=== PATIENT | male | born 1990 | race Caucasian/White ===

== ENCOUNTER 2017-06-08 08:50 | Inpatient (IN) | payer OTHER ==
[2017-06-08] MEDS ORDERED: Sodium Chloride 0.9% 1,000 ML IV STA (09:37)
[2017-06-08 10:25] LABS: ALB/GLOB RATIO 1.5 (1.0-2.1); ALBUMIN 4.6 g/dL (3.5-5.0); ALT/SGPT 58 U/L (21-72); AST/SGOT 31 U/L (17-59); BLOOD UREA NITROGEN 16 mg/dl (9-20); CALCIUM 9.6 mg/dL (8.4-10.2); GFR AFRICAN-AMERICAN > 60; GFR NON-AFRICAN AMERICAN > 60; LIPASE 37 U/L (23-300)
[2017-06-08 10:26] LABS: BASO % 0.4 % (0.0-2.0); EOS # 0.6 K/uL (0.0-0.7); EOS % 5.4 % (0.0-4.0); HEMOGLOBIN 15.5 g/dL (12.0-18.0); LYMPH # 1.2 K/uL (1.0-4.3); MEAN CELL VOLUME 84.1 fl (80.0-94.0); MEAN CORPUSCULAR HEMOGLOBIN 29.6 pg (27.0-31.0); MEAN CORPUSCULAR HGB CONC 35.3 g/dL (33.0-37.0); MEAN PLATELET VOLUME 10.8 fl (7.2-11.7); MONO # 0.6 K/uL (0.0-0.8); MONO % 5.6 % (0.0-10.0); NEUT # 7.9 K/uL (1.8-7.0); NEUT % 76.6 % (50.0-75.0); NRBC % 0.1 % (0.0-0.0); RBC 5.25 Mil/uL (4.40-5.90); RED CELL DISTRIBUTION WIDTH 13.6 % (11.5-14.5); WHITE BLOOD COUNT 10.2 K/uL (4.8-10.8)
[2017-06-08] MEDS ORDERED: Sodium Chloride 0.9% 50 ML IV ONE (10:47)
[2017-06-08] MEDS ORDERED: Iohexol 300 100 ML IJ ONE (10:47)
[2017-06-08 11:35] LABS: URINE BILIRUBIN NEGATIVE (NEGATIVE); URINE BLOOD NEGATIVE (NEGATIVE); URINE CLARITY CLEAR (Clear); URINE COLOR STRAW (YELLOW); URINE GLUCOSE (UA) NEG (Normal); URINE LEUKOCYTE ESTERASE NEG Leu/uL (Negative); URINE NITRATE NEGATIVE (NEGATIVE); URINE PROTEIN NEGATIVE (NEGATIVE); URINE UROBILINOGEN 0.2-1.0 mg/dL (0.2-1.0)
--- NOTE | 2017-06-08 11:40 | CT ---
PROCEDURE: CT Abdomen and Pelvis with contrast HISTORY: Gen abd pain, nausea, vomiting COMPARISON: None. TECHNIQUE: Contrast dose: Radiation dose: Total exam DLP = mGy-cm. This CT exam was performed using one or more of the following dose reduction techniques: Automated exposure control, adjustment of the mA and/or kV according to patient size, and/or use of iterative reconstruction technique. FINDINGS: LOWER THORAX: Unremarkable. LIVER: Unremarkable. No gross lesion or ductal dilatation. GALLBLADDER AND BILE DUCTS: Unremarkable. PANCREAS: Unremarkable. No gross lesion or ductal dilatation. SPLEEN: Unremarkable. ADRENALS: Unremarkable. No mass. KIDNEYS AND URETERS: Unremarkable. No hydronephrosis. No solid mass. VASCULATURE: Unremarkable. No aortic aneurysm. BOWEL: Unremarkable. No obstruction. No gross mural thickening. APPENDIX: Significantly dilated with minimal wall thickening highly suspicious for appendicitis. PERITONEUM: Unremarkable. No free fluid. No free air. LYMPH NODES: Unremarkable. No enlarged lymph nodes. BLADDER: Unremarkable. REPRODUCTIVE: Unremarkable. BONES: No acute fracture. OTHER FINDINGS: None. IMPRESSION: Significantly dilated with minimal wall thickening highly suspicious for appendicitis.
--- NOTE | 2017-06-08 11:43 | ED PDOC ---
HPI: Abdomen Time Seen by Provider: 06/08/17 09:10 Chief Complaint (Nursing): Abdominal Pain Chief Complaint (Provider): Abdominal Pain History Per: Patient History/Exam Limitations: no limitations Onset/Duration Of Symptoms: Hrs (since midnight) Current Symptoms Are (Timing): Still Present Additional Complaint(s): Guanako is a 26 y/o male who presents to the ED complaining of constant abdominal pain associated with chills and vomiting, since midnight. Denies any associated fever, constipation, diarrhea, or symptoms. PMD: Unknown Past Medical History Reviewed: Historical Data, Nursing Documentation, Vital Signs Vital Signs: Last Vital Signs Temp 97.6 F 06/08/17 14:08 Pulse 78 06/08/17 14:08 Resp 19 06/08/17 14:08 BP 128/78 06/08/17 14:08 Pulse Ox 98 06/08/17 14:08 - Medical History PMH: Asthma, Bronchitis Denies: Chronic Kidney Disease - Surgical History Surgical History: No Surg Hx - Family History Family History: States: Unknown Family Hx - Social History Ex-Smoker (has not smoked in the last 12 months): Yes Alcohol: > 2 Drinks/Day Drugs: Cannabis - Home Medications Home Medications: Ambulatory Orders Medication Instructions Recorded predniSONE [predniSONE Tab] 20 mg PO DAILY #5 tab 09/20/14 - Allergies Allergies/Adverse Reactions: Allergies Allergy/AdvReac Type Severity Reaction Status Date / Time No Known Allergies Allergy Verified 09/18/14 11:18 Review of Systems ROS Statement: Except As Marked, All Systems Reviewed And Found Negative Constitutional: Positive for: Chills. Negative for: Fever Gastrointestinal: Positive for: Vomiting, Abdominal Pain. Negative for: Diarrhea, Constipation Genitourinary Male: Negative for: Dysuria, Frequency, Incontinence Physical Exam - Reviewed Nursing Documentation Reviewed: Yes Vital Signs Reviewed: Yes - Physical Exam Appears: Positive for: Non-toxic, In Acute Distress (moderate painful distress) Head Exam: Positive for: ATRAUMATIC, NORMAL INSPECTION, NORMOCEPHALIC Skin: Positive for: Normal Color, Warm, Dry Eye Exam: Positive for: EOMI, Normal appearance, PERRL Neck: Positive for: Normal, Painless ROM, Supple Cardiovascular/Chest: Positive for: Regular Rate, Rhythm. Negative for: Murmur Respiratory: Positive for: Normal Breath Sounds. Negative for: Accessory Muscle Use, Respiratory Distress Gastrointestinal/Abdominal: Positive for: Soft, Tenderness (generalized tenderness). Negative for: Guarding, Rebound Back: Positive for: Normal Inspection. Negative for: Vertebral Tenderness Extremity: Positive for: Normal ROM, Capillary Refill (< 2 sec). Negative for: Pedal Edema, Deformity Neurologic/Psych: Positive for: Alert, Oriented - Laboratory Results Result Diagrams: 06/08/17 10:00 06/08/17 10:00 - ECG O2 Sat by Pulse Oximetry: 98 (RA) Pulse Ox Interpretation: Normal - Physician Consult Information Physician Contacted: Wilfrid Jensen Outcome Of Conversation: Admit to Hospitalist, contact pharmacy resident, Abx, OR today. Medical Decision Making Medical Decision Making: Time: 9:37 Initial Impression: Abdominal Pain Initial Plan: --CMP --CBC --Lipase --ED Urine dipstick --Urinalysis --NS IV 1000 ml at 1000 mls/hr --Morphine 2 mg IV --Zofran 4 mg IV --Pending CT Abdomen and Pelvis w/ IV contrast Time: 10:45 --Morphine 2 mg IV Time: 11:38 CT Abdomen/Pelvis: FINDINGS: LOWER THORAX: Unremarkable. LIVER: Unremarkable. No gross lesion or ductal dilatation. GALLBLADDER AND BILE DUCTS: Unremarkable. PANCREAS: Unremarkable. No gross lesion or ductal dilatation. SPLEEN: Unremarkable. ADRENALS: Unremarkable. No mass. KIDNEYS AND URETERS: Unremarkable. No hydronephrosis. No solid mass. VASCULATURE: Unremarkable. No aortic aneurysm. BOWEL: Unremarkable. No obstruction. No gross mural thickening. APPENDIX: Significantly dilated with minimal wall thickening highly suspicious for appendicitis. PERITONEUM: Unremarkable. No free fluid. No free air. LYMPH NODES: Unremarkable. No enlarged lymph nodes. BLADDER: Unremarkable. REPRODUCTIVE: Unremarkable. BONES: No acute fracture. OTHER FINDINGS: None. IMPRESSION: Significantly dilated with minimal wall thickening highly suspicious for appendicitis. Time: 12:37 --Paged Dr. Jensen, General Surgery, for consult --Pt last ate @ 00:00 and last drank water @ 7 AM. Time: 12:39 --Zosyn given IV --Morphine 2 mg IV Time: 12:54 --Patient is to be admitted inpatient for acute appendicitis --Ordered CXR and EKG stat Scribe Attestation: Documented by Tarah Valdez, acting as a scribe for Shavon Vigil MD Provider Scribe Attestation: All medical record entries made by the Scribe were at my direction and personally dictated by me. I have reviewed the chart and agree that the record accurately reflects my personal performance of the history, physical exam, medical decision making, and the department course for this patient. I have also personally directed, reviewed, and agree with the discharge instructions and disposition. Disposition - Clinical Impression Clinical Impression: Acute appendicitis - Patient ED Disposition Is Patient to be Admitted: Yes - Disposition Disposition Time: 12:56 Condition: STABLE - Pt Status Changed To: Hospital Disposition Of: Inpatient - Admit Certification Admit to Inpatient:: After my assessment, the patient will require hospitalization for at least two midnights. This is because of the severity of symptoms shown, intensity of services needed, and/or the medical risk in this patient being treated as an outpatient. - POA Present On Arrival: None
[2017-06-08] MEDS ORDERED: Piperacillin/Tazobact 3.375 GM in Sodium Chloride 0.9% 100 ML IVPB STA (12:39)
[2017-06-08] MEDS ORDERED: Piperacillin/Tazobact 3.375 gm Inj IVPB ONE (13:12)
--- NOTE | 2017-06-08 13:34 | CP.PCM.HP ---
History of Present Illness - History of Present Illness History of Present Illness: 26 yo male with no siginificant PMH came in complaining generalized abdominal pain since 4am accompanied with nausea and 2 bouts of vomiting. Denied having fever but admitted having chills. Pain was described as sharp and constant and non-radiating. Present on Admission - Present on Admission Any Indicators Present on Admission: No History of DVT/PE: No History of Uncontrolled Diabetes: No Urinary Catheter: No Decubitus Ulcer Present: No Review of Systems - Review of Systems All systems: reviewed and no additional remarkable complaints except (aside from those mentioned above, 12 point system review were negative by me) Past Patient History - Infectious Disease Hx of Infectious Diseases: None - Past Medical History & Family History Past Medical History?: No Past Family History: Reviewed and not pertinent - Past Social History Smoking Status: Current Some Days Smoker Alcohol: < 2 Drinks/Day Drugs: Cannabis - CARDIAC Hx Cardiac Disorders: No - PULMONARY Hx Asthma: Yes Hx Bronchitis: Yes - NEUROLOGICAL Hx Neurological Disorder: No - HEENT Hx HEENT Problems: No - RENAL Hx Chronic Kidney Disease: No - ENDOCRINE/METABOLIC Hx Endocrine Disorders: No - HEMATOLOGICAL/ONCOLOGICAL Hx Blood Disorders: No - INTEGUMENTARY Hx Dermatological Problems: No - MUSCULOSKELETAL/RHEUMATOLOGICAL Hx Musculoskeletal Disorders: No Hx Falls: No - GASTROINTESTINAL Hx Gastrointestinal Disorders: No - GENITOURINARY/GYNECOLOGICAL Hx Genitourinary Disorders: No - PSYCHIATRIC Hx Psychophysiologic Disorder: No Hx Substance Use: Yes (smokes pot) - SURGICAL HISTORY Hx Surgeries: No - ANESTHESIA Hx Anesthesia: No Hx Anesthesia Reactions: No Hx Malignant Hyperthermia: No Meds Allergies/Adverse Reactions: Allergies Allergy/AdvReac Type Severity Reaction Status Date / Time No Known Allergies Allergy Verified 09/18/14 11:18 Physical Exam - Constitutional Appears: No Acute Distress - Head Exam Head Exam: ATRAUMATIC - Eye Exam Eye Exam: absent: Scleral icterus - ENT Exam ENT Exam: Mucous Membranes Moist - Neck Exam Neck exam: Negative for: Meningismus - Respiratory Exam Respiratory Exam: absent: Rhonchi, Wheezes, Respiratory Distress - Cardiovascular Exam Cardiovascular Exam: REGULAR RHYTHM, +S1, +S2 - GI/Abdominal Exam GI & Abdominal Exam: Soft, Tenderness (tenderness over epigastric and RLQ on palpation). absent: Guarding, Rebound - Rectal Exam Rectal Exam: Deferred - Extremities Exam Extremities exam: Negative for: pedal edema - Back Exam Back exam: absent: tenderness - Neurological Exam Neurological exam: Alert, Oriented x3 - Psychiatric Exam Psychiatric exam: Normal Affect - Skin Skin Exam: Dry, Intact Results - Vital Signs Recent Vital Signs: Last Vital Signs Temp 98 F 06/08/17 09:05 Pulse 62 06/08/17 09:05 Resp 18 06/08/17 09:05 BP 133/88 06/08/17 09:05 Pulse Ox 98 06/08/17 12:56 - Labs Result Diagrams: 06/08/17 10:00 06/08/17 10:00 Assessment & Plan (1) Acute appendicitis Status: Acute Comment: place on observation in med/surg. blood culture x 2. surgical consult with Dr Jensen (called by ER). keep NPO. Unasyn 3gm IV q 6hrs. Morphine 2mg IV q 4hrs prn for pain. Zofran 4mg IV q 4hrs prn nausea/vomiting
[2017-06-08] MEDS ORDERED: Bupivacaine 0.5% Inj(30mL) ONE (13:53)
[2017-06-08 13:58] LABS: INR 1.1 (0.9-1.2); PARTIAL THROMBOPLASTIN TIME 33.7 Seconds (25.6-37.1); PROTHROMBIN TIME 11.8 Seconds (9.8-13.1)
[2017-06-08] MEDS ORDERED: Propofol 10 mg/ml Inj (20 ML) ONE (14:21)
[2017-06-08] MEDS ORDERED: Midazolam 2 MG/2 ML VIAL ONE (14:22)
[2017-06-08] MEDS ORDERED: Neostigmine Methylsulfate 3mg/3ml Syringe IV ONE (14:22)
[2017-06-08] MEDS ORDERED: Succinylcholine 200 mg/10 ml Inj IV ONE (14:22)
[2017-06-08] MEDS ORDERED: Rocuronium 10 mg/ml (5 ml) ONE (14:22)
[2017-06-08] MEDS ORDERED: Lidocaine 4% (Laryng-O-Jet) Kit MM ONE (14:22)
[2017-06-08] MEDS ORDERED: Lactated Ringer's 1,000 ML IV ONE ×2 (14:30→15:20)
[2017-06-08] MEDS ORDERED: Bupivacaine 0.5% 50 ML IJ ONE (15:40)
[2017-06-08] MEDS: Ampicillin/Sulbactam 3 GM in Sodium Chloride 0.9% 100 ML IVPB SCH ×2 (16:00→22:05)
[2017-06-08] MEDS ORDERED: HYDROmorphone 0.5 mg/0.5 ml ISec IVP PRN (16:05)
[2017-06-08] MEDS ORDERED: DiphenhydrAMINE 50 mg/ml Inj IVP PRN (16:05)
[2017-06-08] MEDS ORDERED: Oxycodone/Acetaminophen 5/325 mg Tab PO PRN (16:13)
--- NOTE | 2017-06-08 16:17 | PCM.SURG1 ---
Surgeon's Initial Post Op Note - Surgeon's Notes Surgeon: Dr. Jensen Cutting Machine Fixer: Dr. Barbour PGY-2 Type of Anesthesia: General Endo Pre-Operative Diagnosis: acute appendicitis Operative Findings: appendicitis Post-Operative Diagnosis: same Operation Performed: laparoscopic appendectomy Specimen/Specimens Removed: appendix Estimated Blood Loss: EBL {In ML}: 10 Blood Products Given: N/A Drains Used: No Drains Post-Op Condition: Good Date of Surgery/Procedure: 06/08/17 Time of Surgery/Procedure: 16:17
--- NOTE | 2017-06-08 16:21 | CP.PCM.CON ---
<Artem Barbour - Last Filed: 06/08/17 16:19> History of Present Illness - History of Present Illness History of Present Illness: 26M w/ no PMHx reports to the ED w/ complaints of abdominal pain. Patient reports he ate a large meal of fried chicken and camb[place]ian fries before going to sleep. At 4AM patient states he woke up with generalized abdominal pain which increased in severity with time. Patient reports having multiples bouts of emesis, non-bloody. Denies taking any medication to alleviate pain. Since pain did not improve patient decided to come to hospital. Patient denies radiation of abdominal pain. PMHx: as stated above Allergies: NKDA PSurgHx: none Review of Systems - Review of Systems Review of Systems: 12 pt ROS unremarkable, except as stated in HPI Past Patient History - Infectious Disease Hx of Infectious Diseases: None - Past Medical History & Family History Past Medical History?: No Past Family History: Reviewed and not pertinent - Past Social History Alcohol: > 2 Drinks/Day Drugs: Cannabis - CARDIAC Hx Cardiac Disorders: No - PULMONARY Hx Asthma: Yes Hx Bronchitis: Yes - NEUROLOGICAL Hx Neurological Disorder: No - HEENT Hx HEENT Problems: No - RENAL Hx Chronic Kidney Disease: No - ENDOCRINE/METABOLIC Hx Endocrine Disorders: No - HEMATOLOGICAL/ONCOLOGICAL Hx Blood Disorders: No - INTEGUMENTARY Hx Dermatological Problems: No - MUSCULOSKELETAL/RHEUMATOLOGICAL Hx Musculoskeletal Disorders: No - GASTROINTESTINAL Hx Gastrointestinal Disorders: No - GENITOURINARY/GYNECOLOGICAL Hx Genitourinary Disorders: No - PSYCHIATRIC Hx Psychophysiologic Disorder: No - SURGICAL HISTORY Hx Surgeries: No - ANESTHESIA Hx Anesthesia: No Hx Anesthesia Reactions: No Hx Malignant Hyperthermia: No Meds Allergies/Adverse Reactions: Allergies Allergy/AdvReac Type Severity Reaction Status Date / Time No Known Allergies Allergy Verified 09/18/14 11:18 - Medications Medications: Current Medications Diphenhydramine HCl (Benadryl) 25 mg IVP Q6 PRN PRN Reason: Itching / Pruritus Stop: 06/08/17 18:09 Famotidine (Pepcid) 20 mg PO DAILY CE Hydromorphone HCl (Dilaudid) 0.5 mg IVP Q5M PRN PRN Reason: Pain, moderate (4-7) Stop: 06/08/17 18:07 Sodium Chloride (Sodium Chloride 0.9%) 1,000 mls @ 100 mls/hr IV .Q10H CE Ampicillin Sodium/Sulbactam (Sodium 3 gm/ Sodium Chloride) 100 mls @ 100 mls/ hr IVPB Q6 CE Lactated Ringer's (Lactated Ringer's) 1,000 mls @ 100 mls/hr IV .Q10H CE Morphine Sulfate (Morphine) 2 mg IVP Q4 PRN PRN Reason: abdominal pain Morphine Sulfate (Morphine) 4 mg IVP Q4 PRN PRN Reason: Pain, severe (8-10) Ondansetron HCl (Zofran Inj) 4 mg IVP Q6 PRN PRN Reason: Nausea/Vomiting Oxycodone/Acetaminophen (Percocet 5/325 Mg Tab) 1 tab PO Q4 PRN PRN Reason: Pain, moderate (4-7) Stop: 06/11/17 16:14 Physical Exam - Constitutional Appears: No Acute Distress - Head Exam Head Exam: NORMOCEPHALIC - Eye Exam Eye Exam: Normal appearance - ENT Exam ENT Exam: Normal Exam - Respiratory Exam Respiratory Exam: NORMAL BREATHING PATTERN - Cardiovascular Exam Cardiovascular Exam: +S1, +S2 - GI/Abdominal Exam GI & Abdominal Exam: Guarding, Rebound, Tenderness. absent: Firm, Rigid Additional comments: +McBurney's +Rovsings -Psoas +rebound tenderness - Neurological Exam Neurological exam: Alert, Oriented x3 - Psychiatric Exam Psychiatric exam: Normal Mood - Skin Skin Exam: Dry, Intact, Warm Results - Vital Signs Recent Vital Signs: Last Vital Signs Temp 98.3 F 06/08/17 16:05 Pulse 74 06/08/17 16:05 Resp 18 06/08/17 16:05 BP 114/69 06/08/17 16:05 Pulse Ox 96 06/08/17 16:05 - Labs Result Diagrams: 06/08/17 10:00 06/08/17 10:00 Labs: Laboratory Results - last 24 hr 06/08/17 13:05 PT 11.8 INR 1.1 APTT 33.7 - Imaging and Cardiology CT scan - abdomen Status: Image reviewed by me, Report reviewed by me Assessment & Plan - Assessment and Plan (Free Text) Assessment: 26M w/ acute appendicitis -NPO -IVF -Abx -Anti-emetics/Analgesics -Patient scheduled for OR for laparoscopic appendectomy, possible open -DVT/GI ppx -D/w Dr. Camila Barbour PGY-2 <Wilfrid Jensen - Last Filed: 06/08/17 16:41> History of Present Illness - History of Present Illness History of Present Illness: Patient was seen and examined at the bedside. Agree with resident's note above. Meds - Medications Medications: Current Medications Diphenhydramine HCl (Benadryl) 25 mg IVP Q6 PRN PRN Reason: Itching / Pruritus Stop: 06/08/17 18:09 Famotidine (Pepcid) 20 mg PO DAILY CE Hydromorphone HCl (Dilaudid) 0.5 mg IVP Q5M PRN PRN Reason: Pain, moderate (4-7) Stop: 06/08/17 18:07 Sodium Chloride (Sodium Chloride 0.9%) 1,000 mls @ 100 mls/hr IV .Q10H CE Ampicillin Sodium/Sulbactam (Sodium 3 gm/ Sodium Chloride) 100 mls @ 100 mls/ hr IVPB Q6 CE Last Admin: 06/08/17 16:00 Dose: 100 mls/hr Lactated Ringer's (Lactated Ringer's) 1,000 mls @ 100 mls/hr IV .Q10H CE Morphine Sulfate (Morphine) 2 mg IVP Q4 PRN PRN Reason: abdominal pain Morphine Sulfate (Morphine) 4 mg IVP Q4 PRN PRN Reason: Pain, severe (8-10) Ondansetron HCl (Zofran Inj) 4 mg IVP Q6 PRN PRN Reason: Nausea/Vomiting Oxycodone/Acetaminophen (Percocet 5/325 Mg Tab) 1 tab PO Q4 PRN PRN Reason: Pain, moderate (4-7) Stop: 06/11/17 16:14 Results - Vital Signs Recent Vital Signs: Last Vital Signs Temp 98.3 F 06/08/17 16:35 Pulse 68 06/08/17 16:35 Resp 16 06/08/17 16:35 BP 113/61 06/08/17 16:35 Pulse Ox 100 06/08/17 16:35 - Labs Result Diagrams: 06/08/17 10:00 06/08/17 10:00 Labs: Laboratory Results - last 24 hr 06/08/17 13:05 PT 11.8 INR 1.1 APTT 33.7
[2017-06-08] MEDS: Sodium Chloride 0.9% 1,000 ML IV SCH (17:26)
[2017-06-08] MEDS: Lactated Ringer's 1,000 ML IV SCH (17:50)
[2017-06-08] MEDS ORDERED: Morphine 4 MG/ML VIAL IVP PRN (21:30)
[2017-06-09 01:09] VITALS: RESP 20
[2017-06-09] MEDS: Sodium Chloride 0.9% 1,000 ML IV SCH (01:43)
--- NOTE | 2017-06-09 03:45 | OP ---
PREOPERATIVE DIAGNOSIS: Acute appendicitis. POSTOPERATIVE DIAGNOSIS: Acute appendicitis. PROCEDURE: Laparoscopic appendectomy. SURGEON: Wilfrid Jensen MD AUDIO NARRATOR: Km. TYPE OF ANESTHESIA: General endotracheal intubation. ANESTHESIA ADMINISTERED BY: Ignacio Law MD IV FLUIDS: Crystalloids. ESTIMATED BLOOD LOSS: 5 mL INTRAOPERATIVE FINDINGS: Acute appendicitis. SPECIMEN: Appendix. BRIEF HISTORY: Mr. Javier is a very pleasant 26-year-old gentleman who presented to the hospital complaining of abdominal pain for the duration of 1 day and upon further investigation, the patient was found to have acute appendicitis on the CAT scan. All the risks and benefits of the procedure were explained to the patient and with the patient having a full understanding of all the risks and benefits involved, informed consent was obtained, and the patient was taken to the operating room for above stated procedure. DESCRIPTION OF PROCEDURE: The patient was brought in to the operating room and placed supine in operating room table. Bilateral Flowtron boots were applied to the patient's lower extremities. After successful induction of anesthesia and successful endotracheal intubation by the anesthesia team, Mcgovern catheter was inserted into the patient's urinary bladder, and subsequent to that, the patient's abdomen was prepped with ChloraPrep stick and draped in a standard surgical fashion. Prior to the beginning of the procedure, time-out was called in the room and everyone in the room were in agreement. Using Veress needle, the patient's abdomen was entered at the umbilicus, and pneumoperitoneum was achieved with good opening pressures. Once this was accomplished, using 11 blade scalpel knife, approximately 5-mm incision was made in longitudinal fashion in umbilicus and subsequent to that, 5 mm trocar was introduced into the patient's abdomen. At that point in time, 5 mm 0-degree scope was introduced into the patient's abdomen, and abdomen was inspected. Attention was turned to the lower mid abdomen using 11 blade scalpel knife, 5 mm incision was made in the transverse fashion and subsequent to that, another 5 mm trocar was introduced into the patient's abdomen. Now, attention was turned to the left lower quadrant of the patient's abdomen. Using 11 blade scalpel knife, approximately 1-cm incision was made in transverse fashion, and subsequent to that, a 12-mm trocar was introduced into the patient's abdomen. At that point in time, appendix was mobilized using 2 graspers and subsequent to that, there appeared to be some peritoneal adhesions to the appendix. So, in order to mobilize them, I had to use Harmonic scalpel in order to dissect the appendix out all the way to the base, right next to the cecum. Mesoappendix was taken with Harmonic scalpel. At that point in time, using 45 mm blue-load Endo MARTÍNEZ stapler, appendix was taken right at the base and subsequent to that once the appendix was completely freed up, Endocatch bag was introduced into the patient's abdomen. Appendix was placed inside of the bag, and the bag was closed. At that point in time, staple line was inspected and appeared to be satisfactory. Right lower quadrant was mildly irrigated, and fluid was suctioned out, and at that point in time, 12 mm trocar together with Endocatch bag and appendix were removed from the patient's abdomen and passed off to the [facility] as a specimen. Fascial layer at the 12 mm trocar site and left lower quadrant was closed with 2 interrupted 0 Vicryl sutures and UR-5 needle and subsequent to that, the patient's abdomen was fully desufflated, and the rest of the trocars were removed from the patient's abdomen. The skin was closed with 4-0 Monocryl suture in a running subcuticular fashion. At the end of the procedure, incision sites were infiltrated with Marcaine anesthetic. The patient's abdomen was washed and dried, and Dermabond was applied to the incision sites. Mcgovern catheter was removed from the patient's urinary bladder. The patient was successfully extubated by the anesthesia team, transferred to the stretcher, and taken to the recovery room in stable condition. At the end of the procedure, all instrument counts, needles, and sponges were correct. Wilfrid Jensen MD
[2017-06-09] MEDS: Ampicillin/Sulbactam 3 GM in Sodium Chloride 0.9% 100 ML IVPB SCH ×2 (04:16→12:45)
[2017-06-09] MEDS: Lactated Ringer's 1,000 ML IV SCH (04:17)
--- NOTE | 2017-06-09 07:51 | CP.PCM.DIS ---
Provider - Provider Date of Admission: 06/08/17 12:54 Attending physician: Hugo Rosado MD Primary care physician: None Consults: surgeryconsult Time Spent in preparation of Discharge (in minutes): 20 Hospital Course - Lab Results Lab Results: Most Recent Lab Values WBC 10.2 K/uL (4.8-10.8) 06/08/17 10:00 RBC 5.25 Mil/uL (4.40-5.90) 06/08/17 10:00 Hgb 15.5 g/dL (12.0-18.0) 06/08/17 10:00 Hct 44.1 % (35.0-51.0) 06/08/17 10:00 MCV 84.1 fl (80.0-94.0) 06/08/17 10:00 MCH 29.6 pg (27.0-31.0) 06/08/17 10:00 MCHC 35.3 g/dL (33.0-37.0) 06/08/17 10:00 RDW 13.6 % (11.5-14.5) 06/08/17 10:00 Plt Count 158 K/uL (130-400) 06/08/17 10:00 MPV 10.8 fl (7.2-11.7) 06/08/17 10:00 Neut % (Auto) 76.6 % (50.0-75.0) H 06/08/17 10:00 Lymph % (Auto) 12.0 % (20.0-40.0) L 06/08/17 10:00 [place] % (Auto) 5.6 % (0.0-10.0) 06/08/17 10:00 Eos % (Auto) 5.4 % (0.0-4.0) H 06/08/17 10:00 Baso % (Auto) 0.4 % (0.0-2.0) 06/08/17 10:00 Neut # 7.9 K/uL (1.8-7.0) H 06/08/17 10:00 Lymph # 1.2 K/uL (1.0-4.3) 06/08/17 10:00 [place] # 0.6 K/uL (0.0-0.8) 06/08/17 10:00 Eos # 0.6 K/uL (0.0-0.7) 06/08/17 10:00 Baso # 0.0 K/uL (0.0-0.2) 06/08/17 10:00 PT 11.8 Seconds (9.8-13.1) 06/08/17 13:05 INR 1.1 (0.9-1.2) 06/08/17 13:05 APTT 33.7 Seconds (25.6-37.1) 06/08/17 13:05 Sodium 139 mmol/l (132-148) 06/08/17 10:00 Potassium 4.0 MMOL/L (3.6-5.0) 06/08/17 10:00 Chloride 102 mmol/L (98-107) 06/08/17 10:00 Carbon Dioxide 24 mmol/L (22-30) 06/08/17 10:00 Anion Gap 17 (10-20) 06/08/17 10:00 BUN 16 mg/dl (9-20) 06/08/17 10:00 Creatinine 0.8 mg/dL (0.8-1.5) 06/08/17 10:00 Est GFR ( Amer) > 60 06/08/17 10:00 Est GFR (Non-Af Amer) > 60 06/08/17 10:00 Random Glucose 108 mg/dL (75-110) 06/08/17 10:00 Calcium 9.6 mg/dL (8.4-10.2) 06/08/17 10:00 Total Bilirubin 0.6 mg/dl (0.2-1.3) 06/08/17 10:00 AST 31 U/L (17-59) 06/08/17 10:00 ALT 58 U/L (21-72) 06/08/17 10:00 Alkaline Phosphatase 94 U/L (38-126) 06/08/17 10:00 Total Protein 7.6 G/DL (6.3-8.2) 06/08/17 10:00 Albumin 4.6 g/dL (3.5-5.0) 06/08/17 10:00 Globulin 3.1 gm/dL (2.2-3.9) 06/08/17 10:00 Albumin/Globulin Ratio 1.5 (1.0-2.1) 06/08/17 10:00 Lipase 37 U/L (23-300) 06/08/17 10:00 Urine Color Straw (YELLOW) 06/08/17 10:00 Urine Clarity Clear (Clear) 06/08/17 10:00 Urine pH 7.0 (5.0-8.0) 06/08/17 10:00 Ur Specific [place] 1.015 (1.003-1.030) 06/08/17 10:00 Urine Protein Negative mg/dL (NEGATIVE) 06/08/17 10:00 Urine Glucose (UA) Neg mg/dL (Normal) 06/08/17 10:00 Urine Ketones Negative mg/dL (NEGATIVE) 06/08/17 10:00 Urine Blood Negative (NEGATIVE) 06/08/17 10:00 Urine Nitrate Negative (NEGATIVE) 06/08/17 10:00 Urine Bilirubin Negative (NEGATIVE) 06/08/17 10:00 Urine Urobilinogen 0.2-1.0 mg/dL (0.2-1.0) 06/08/17 10:00 Ur Leukocyte Esterase Neg [place]/uL (Negative) 06/08/17 10:00 Urine RBC (Auto) < 1 /hpf (0-3) 06/08/17 10:00 - Hospital Course Hospital Course: 26M w/ no PMHx reported to the ED w/ complaints of abdominal pain. Patient reported he ate a large meal of fried chicken and congolese fries before going to sleep. At 4AM patient stated he woke up with generalized abdominal pain which increased in severity with time. Patient reported having multiples bouts of emesis, non-bloody. Denies taking any medication to alleviate pain. Since pain did not improve patient decided to come to hospital. Patient denied radiation of abdominal pain. Ct abdomen showed acute appendicitis surgery consultd patient started empirically on Zosyn iv He underwent laparascopic appendectomy . post op doing well, voiding freely, ambulating , passing flatus, tolerating Po intake, hemodynamiaclly stable, afebrile Discussed with surgery . patient cleared to be discharged home on PO percoset and augmentin for 1 week Dx ; acute appendicitis Discharge Exam - Head Exam Head Exam: ATRAUMATIC, NORMOCEPHALIC - Eye Exam Eye Exam: EOMI, Normal appearance, PERRL Pupil Exam: NORMAL ACCOMODATION - ENT Exam ENT Exam: Mucous Membranes Moist, Normal Exam - Neck Exam Neck exam: Full Rom, Normal Inspection - Respiratory Exam Respiratory Exam: Clear to PA & Lateral, NORMAL BREATHING PATTERN. absent: Rales, Rhonchi, Wheezes - Cardiovascular Exam Cardiovascular Exam: REGULAR RHYTHM, RRR, +S1, +S2. absent: JVD - GI/Abdominal Exam GI & Abdominal Exam: Normal Bowel Sounds, Soft, Tenderness, Unremarkable. absent: Distended, Guarding - Rectal Exam Rectal Exam: Deferred - Extremities Exam Extremities exam: normal capillary refill, normal inspection, pedal pulses present - Back Exam Back exam: NORMAL INSPECTION - Neurological Exam Neurological exam: Alert, CN II-XII Intact, Oriented x3, Reflexes Normal - Psychiatric Exam Psychiatric exam: Normal Affect, Normal Mood - Skin Skin Exam: Dry, Intact, Normal Color, Warm Discharge Plan - Discharge Medications Prescriptions: Amoxicillin/Clavulanate [Augmentin 875 MG-125 MG] 1 tab PO BID #14 tab oxyCODONE/Acetaminophen [Percocet 5/325 mg Tab] 1 ea PO Q6 PRN #20 tab PRN Reason: Pain, Severe (8-10) - Follow Up Plan Condition: STABLE Disposition: HOME/ ROUTINE Patient education suggested?: Yes Instructions: Laparoscopic Appendectomy (DC), Appendicitis (DC) Referrals: Wilfrid Jensen MD [Staff Provider] -
[2017-06-09 08:04] LABS: BASO % 0.4 % (0.0-2.0); EOS # 0.2 K/uL (0.0-0.7); EOS % 3.1 % (0.0-4.0); HEMOGLOBIN 14.1 g/dL (12.0-18.0); LYMPH # 1.5 K/uL (1.0-4.3); LYMPH % 21.4 % (20.0-40.0); MEAN CELL VOLUME 84.9 fl (80.0-94.0); MEAN CORPUSCULAR HEMOGLOBIN 29.6 pg (27.0-31.0); MEAN CORPUSCULAR HGB CONC 34.8 g/dL (33.0-37.0); MEAN PLATELET VOLUME 10.5 fl (7.2-11.7); MONO # 0.6 K/uL (0.0-0.8); MONO % 7.9 % (0.0-10.0); NEUT # 4.8 K/uL (1.8-7.0); NEUT % 67.2 % (50.0-75.0); NRBC % 0.1 % (0.0-0.0); RBC 4.77 Mil/uL (4.40-5.90); RED CELL DISTRIBUTION WIDTH 13.3 % (11.5-14.5); WHITE BLOOD COUNT 7.2 K/uL (4.8-10.8)
[2017-06-09 08:17] LABS: BLOOD UREA NITROGEN 8 mg/dl (9-20); CALCIUM 8.3 mg/dL (8.4-10.2); GFR AFRICAN-AMERICAN > 60; GFR NON-AFRICAN AMERICAN > 60
[2017-06-09 08:31] VITALS: BP 107/65; PULSE 87; TEMP 99.6; O2SAT 97
--- NOTE | 2017-06-09 08:53 | RAD ---
HISTORY: Medical clearance COMPARISON: No prior. FINDINGS: LUNGS: No active pulmonary disease. PLEURA: No significant pleural effusion identified, no pneumothorax apparent. CARDIOVASCULAR: Normal. OSSEOUS STRUCTURES: No significant abnormalities. VISUALIZED UPPER ABDOMEN: Normal. OTHER FINDINGS: None. IMPRESSION: No active disease.
--- NOTE | 2017-06-09 09:42 | CARD ---
APPROVED REPORT EKG Measurement Heart [id number] MI [id number] <Conclusion> Normal sinus rhythm Normal ECG
--- NOTE | 2017-06-09 09:50 | CP.PCM.PN ---
<Jose Shore - Last Filed: 06/09/17 12:31> Subjective - Date & Time of Evaluation Date of Evaluation: 06/09/17 Time of Evaluation: 06:25 - Subjective Subjective: General Surgery Progress Note for Dr. Jensen Patient seen and examined at bedside. No acute event overnight. Patient resting in bed comfortably. Patient states he has pain at incision site. Patient has no other complaints at this time. Objective - Vital Signs/Intake and Output Vital Signs (last 24 hours): Temp Pulse Resp BP Pulse Ox 99.6 F 87 20 107/65 97 06/09/17 08:30 06/09/17 08:30 06/09/17 08:30 06/09/17 08:30 06/09/17 08:30 - Medications Medications: Current Medications Famotidine (Pepcid) 20 mg PO DAILY [facility] Last Admin: 06/09/17 09:00 Dose: 20 mg Sodium Chloride (Sodium Chloride 0.9%) 1,000 mls @ 100 mls/hr IV .Q10H [facility] Last Admin: 06/09/17 01:43 Dose: Not Given Ampicillin Sodium/Sulbactam (Sodium 3 gm/ Sodium Chloride) 100 mls @ 100 mls/ hr IVPB Q6 [facility] Last Admin: 06/09/17 04:16 Dose: 100 mls/hr Lactated Ringer's (Lactated Ringer's) 1,000 mls @ 100 mls/hr IV .Q10H [facility] Last Admin: 06/09/17 04:17 Dose: 100 mls/hr Morphine Sulfate (Morphine) 4 mg IVP Q4 PRN PRN Reason: Pain, severe (8-10) Last Admin: 06/08/17 22:03 Dose: 4 mg Ondansetron HCl (Zofran Inj) 4 mg IVP Q6 PRN PRN Reason: Nausea/Vomiting Oxycodone/Acetaminophen (Percocet 5/325 Mg Tab) 1 tab PO Q4 PRN PRN Reason: Pain, moderate (4-7) Stop: 06/11/17 16:14 - Labs Labs: 06/09/17 05:30 06/09/17 05:30 PT 11.8 Seconds (9.8-13.1) 06/08/17 13:05 INR 1.1 (0.9-1.2) 06/08/17 13:05 APTT 33.7 Seconds (25.6-37.1) 06/08/17 13:05 - Constitutional Appears: Well, Non-toxic, No Acute Distress - Head Exam Head Exam: ATRAUMATIC, NORMOCEPHALIC - Eye Exam Eye Exam: Normal appearance - ENT Exam ENT Exam: Mucous Membranes Moist - Neck Exam Neck Exam: Normal Inspection - Respiratory Exam Respiratory Exam: NORMAL BREATHING PATTERN - Cardiovascular Exam Cardiovascular Exam: REGULAR RHYTHM - GI/Abdominal Exam GI & Abdominal Exam: Soft, Tenderness (mild at incisions and LLQ). absent: Distended, Firm, Guarding, Rigid, Rebound Additional comments: incision c/d/i - Extremities Exam Extremities Exam: absent: Calf Tenderness - Back Exam Back Exam: absent: CVA tenderness (L), CVA tenderness (R) - Neurological Exam Neurological Exam: Alert, Awake, Oriented x3 - Psychiatric Exam Psychiatric exam: Normal Affect, Normal Mood - Skin Skin Exam: Dry, Intact, Normal Color, Warm Assessment and Plan - Assessment and Plan (Free Text) Plan: 26 M who presented for acute appendicitis, s/p laparoscopic apendectomy POD #1 -Regular diet -Abx -Anti-emetics/Analgesics PRN -Clear for discharge from surgical standpoint -Will DW Dr. Camila Shore PGY1 <Wilfrid Jensen - Last Filed: 06/09/17 14:05> Subjective - Date & Time of Evaluation Time of Evaluation: 13:25 - Subjective Subjective: Patient was seen and examined at the bedside. Agree with resident's note above. Objective - Vital Signs/Intake and Output Vital Signs (last 24 hours): Temp Pulse Resp BP Pulse Ox 99.6 F 87 20 107/65 97 06/09/17 08:30 06/09/17 08:30 06/09/17 08:30 06/09/17 08:30 06/09/17 08:30 - Medications Medications: Current Medications Famotidine (Pepcid) 20 mg PO DAILY [facility] Last Admin: 06/09/17 09:00 Dose: 20 mg Sodium Chloride (Sodium Chloride 0.9%) 1,000 mls @ 100 mls/hr IV .Q10H [facility] Last Admin: 06/09/17 01:43 Dose: Not Given Ampicillin Sodium/Sulbactam (Sodium 3 gm/ Sodium Chloride) 100 mls @ 100 mls/ hr IVPB Q6 [facility] Last Admin: 06/09/17 12:45 Dose: Not Given Lactated Ringer's (Lactated Ringer's) 1,000 mls @ 100 mls/hr IV .Q10H [facility] Last Admin: 06/09/17 04:17 Dose: 100 mls/hr Morphine Sulfate (Morphine) 4 mg IVP Q4 PRN PRN Reason: Pain, severe (8-10) Last Admin: 06/08/17 22:03 Dose: 4 mg Ondansetron HCl (Zofran Inj) 4 mg IVP Q6 PRN PRN Reason: Nausea/Vomiting Oxycodone/Acetaminophen (Percocet 5/325 Mg Tab) 1 tab PO Q4 PRN PRN Reason: Pain, moderate (4-7) Stop: 06/11/17 16:14 - Labs Labs: 06/09/17 05:30 06/09/17 05:30 PT 11.8 Seconds (9.8-13.1) 06/08/17 13:05 INR 1.1 (0.9-1.2) 06/08/17 13:05 APTT 33.7 Seconds (25.6-37.1) 06/08/17 13:05 Assessment and Plan - Assessment and Plan (Free Text) Plan: - Clear for discharge from the surgical stand point - Augmentin on discharge for 1 week - patient will follow up with me in the office in 2 weeks for post-op visit
== END 2017-06-09 15:00 | disposition home or self-care (01) | DRG 343 ==
LOC: H.ER 08:50 → H.ERHOLD 12:54 → H.MEDSURG1 17:24
PROC: 0DTJ4ZZ Resection of Appendix, Percutaneous Endoscopic Approach (ICD-10-PCS; principal; 2017-06-08 14:00)
DX: K35.80 Unspecified acute appendicitis (principal); F17.210 Nicotine dependence, cigarettes, uncomplicated; F12.10 Cannabis abuse, uncomplicated; J45.909 Unspecified asthma, uncomplicated